=== PATIENT | male | born 1980 | race African-American/Black ===

== ENCOUNTER 2018-10-07 02:04 | Emergency (ER) | payer SELFPAY ==
[~2018-10-07] VITALS: Ht 188 cm; Wt 100.0 kg
[2018-10-07 06:28] VITALS: BP 124/75
== END 2018-10-07 06:37 | disposition home or self-care (01) ==
LOC: ER 02:04
DX: J40 Bronchitis, not specified as acute or chronic (principal); H92.02 Otalgia, left ear
CPT/HCPCS: 99283

== ENCOUNTER 2022-04-20 11:54 | Emergency (ER) | payer OTHER ==
[~2022-04-20] VITALS: Ht 188 cm; Wt 100.0 kg
[2022-04-20 12:25] VITALS: BP 142/56
[2022-04-20 13:26] LABS: BASOPHILS % 0.5 % (0.0-2.0); EOSINOPHILS % 1.9 % (0.0-5.0); HEMATOCRIT. 43.7 % (42.0-52.0); HEMOGLOBIN. 14.6 g/dL (14.0-18.0); LYMPHOCYTES % 24.9 % (20.0-50.0); MEAN CORPUSCULAR HEMOGLOBIN 30.3 pg (28.0-32.0); MEAN PLATELET VOLUME 8.4 fl (7.4-10.4); MONOCYTES % 8.9 % (2.0-8.0); NEUTROPHILS % 63.8 % (40.0-76.0); PLATELET 242 x1000/uL (130-400); RED CELL DISTRIBUTION WIDTH 14.2 % (11.6-14.6)
[2022-04-20 13:29] LABS: CHLORIDE 105 mEq/L (98-107)
[2022-04-20 14:10] LABS: CLARITY URINE CLEAR (CLEAR); COLOR URINE YELLOW (YELLOW); KETONES URINE TRACE (NEGATIVE); LEUKOCYTE ESTERASE URINE 1+ (NEGATIVE); NITRITE URINE NEGATIVE (NEGATIVE); OCCULT BLOOD URINE NEGATIVE (NEGATIVE); PH URINE 6.5 (4.5-8.0); PROTEIN URINE 2+ (NEGATIVE); SPECIFIC GRAVITY URINE 1.023 (1.005-1.030)
[2022-04-20] MEDS ORDERED: ASPIRIN 81MG TABLET PO ONE (14:45)
== END 2022-04-20 15:19 | disposition left against medical advice (07) ==
LOC: ER 11:54
DX: R07.9 Chest pain, unspecified (principal); S37.009A Unspecified injury of unspecified kidney, initial encounter; R74.8 Abnormal levels of other serum enzymes; X58.XXXA Exposure to other specified factors, initial encounter; Y93.9 Activity, unspecified; Y92.9 Unspecified place or not applicable
CPT/HCPCS: 36415; 71045; 80053; 81003; 84484; 85025; 85379; 93005; 99285